=== PATIENT | female | born 1990 | race Caucasian/White ===

== ENCOUNTER 2018-07-19 14:50 | Emergency (ER) | payer BC ==
[~2018-07-19] VITALS: Ht 165.1 cm; Wt 117.0 kg
--- NOTE | 2018-07-19 15:25 | PHYS DOC ---
Past History Past Medical History: No Pertinent History Past Surgical History: No Surgical History Alcohol Use: Rarely Drug Use: None Adult General Chief Complaint Chief Complaint: CHEST PAIN HPI HPI Patient is a 27 year old [female] who presents with chest pain. This is in her left upper chest that has been present for the past 3 days. Became worse today. Worse with deep breaths. No association with activity. No radiation of the discomfort. Patient describes it as sore and mild to moderate in intensity. Patient denies any cough or fever. Denies any trauma. Denies any stasis or known hypercoagulable state. No previous history of this. Patient has taken antacids at the onset because of thinking that this was reflux however there was no change in the pain with the antacids. No family history of blood clots, family history is significant for diabetes[] Review of Systems Review of Systems Constitutional: Denies fever or chills [] Eyes: Denies change in visual acuity, redness, or eye pain [] HENT: Denies nasal congestion or sore throat [] Respiratory: Denies cough or shortness of breath [] Cardiovascular: No additional information not addressed in HPI [] GI: Denies abdominal pain, nausea, vomiting, bloody stools or diarrhea [] : Denies dysuria or hematuria [] Musculoskeletal: Denies back pain or joint pain [] Integument: Denies rash or skin lesions [] Neurologic: Denies headache, focal weakness or sensory changes [] Endocrine: Denies polyuria or polydipsia [] All other systems were reviewed and found to be within normal limits, except as documented in this note. Allergies Allergies Allergies Coded Allergies Type Severity Reaction Last Updated Verified No Known Drug Allergies 07/19/18 No Physical Exam Physical Exam Constitutional: Well developed, well nourished, no acute distress, non-toxic appearance. [] HENT: Normocephalic, atraumatic, bilateral external ears normal, oropharynx moist, no oral exudates, nose normal. [] Eyes: PERRLA, EOMI, conjunctiva normal, no discharge. [] Neck: Normal range of motion, no tenderness, supple, no stridor. [] Cardiovascular:Heart rate regular rhythm, no murmur [] Lungs & Thorax: Bilateral breath sounds clear to auscultation, no chest tenderness to palpation, no crepitus, no flail segment [] Abdomen: Bowel sounds normal, soft, no tenderness, no masses, no pulsatile masses. [] Skin: Warm, dry, no erythema, no rash. [] Back: No tenderness, no CVA tenderness. [] Extremities: No tenderness, no cyanosis, no clubbing, ROM intact, no edema. [] Neurologic: Alert and oriented X 3, normal motor function, normal sensory function, no focal deficits noted. [] Psychologic: Affect normal, judgement normal, mood normal. [] Current Patient Data Vital Signs Vital Signs Date Time Temp Pulse Resp B/P (MAP) Pulse Ox O2 Delivery O2 Flow Rate FiO2 07/19/18 14:50 82 24 99 Room Air EKG EKG EKG shows a normal sinus rhythm, no ST elevation, axis of 21, QTc of 407 ms[] Radiology/Procedures Radiology/Procedures Chest x-ray shows no acute features[] Course & Med Decision Making Course & Med Decision Making Pertinent Labs and Imaging studies reviewed. (See chart for details) Medical decision making: There does not appear to be a pneumonia, pneumothorax, no evidence of pulmonary embolism, no evidence of acute coronary syndrome, no esophageal rupture based on history. ED course: Patient arrived, was placed in bed, and tolerated exam well. After the return of laboratory and imaging findings, these were relayed to patient along with plan going forward. All questions were answered.[] Dragon Disclaimer Dragon Disclaimer This electronic medical record was generated, in whole or in part, using a voice recognition dictation system. Departure Departure: Impression: Primary Impression: Chest pain Disposition: HOME, SELF-CARE Condition: GOOD Referrals: PCP,NO (PCP) Patient Instructions: Chest Pain (Nonspecific), Form - Excuse from Work, School , or Physical Activity Additional Instructions: Follow-up with your regular doctor in 2 days. Return to the ER if worsening chest discomfort, difficulty breathing, or any other concerns. Scripts Tramadol Hcl (TRAMADOL HCL) 50 Mg Tablet 50 MG PO PRN Q6HRS PRN for PAIN, #20 TAB Prov: DOMO WOO DO 07/19/18 Meloxicam (MELOXICAM) 7.5 Mg Tablet 7.5 MG PO DAILY for PAIN, #20 TAB Prov: DOMO WOO DO 07/19/18 Problem Qualifiers Primary Impression: Chest pain Chest pain type: unspecified Qualified Codes: R07.9 - Chest pain, unspecified DOMO WOO DO Jul 19, 2018 15:25
[2018-07-19] MEDS ORDERED: ASPIRIN 81 MG TAB.CHEW PO ONE (15:30)
[2018-07-19] MEDS ORDERED: KETOROLAC 15 MG/ML VIAL. IV ONE (15:30)
[2018-07-19 15:48] LABS: BASO # 0.1 x10^3/uL (0.0-0.2); BASO % 1 % (0-3); EOS # 0.1 x10^3/uL (0.0-0.7); EOS % 1 % (0-3); HEMATOCRIT 42.7 % (36.0-47.0); HEMOGLOBIN 14.3 g/dL (12.0-15.5); LYMPH # 1.7 x10^3/uL (1.0-4.8); LYMPH % 24 % (24-48); MEAN CORPUSCULAR HEMOGLOBIN 28 pg (25-35); MEAN CORPUSCULAR HGB CONC 34 g/dL (31-37); MEAN CORPUSCULAR VOLUME 85 fL (79-100); MONO # 0.6 x10^3/uL (0.0-1.1); MONO % 8 % (0-9); NEUT # 4.7 x10^3uL (1.8-7.7); NEUT % 65 % (31-73); PLATELET COUNT 329 x10^3/uL (140-400); RED BLOOD COUNT 5.03 x10^6/uL (3.50-5.40); WHITE BLOOD COUNT 7.2 x10^3/uL (4.0-11.0)
[2018-07-19 16:12] LABS: ALBUMIN 3.6 g/dL (3.4-5.0); CALCIUM 9.2 mg/dL (8.5-10.1); GFR 66.5; POTASSIUM 3.9 mmol/L (3.5-5.1); TOTAL BILIRUBIN 0.5 mg/dL (0.2-1.0); TOTAL PROTEIN 7.1 g/dL (6.4-8.2)
[2018-07-19 16:26] VITALS: BP 122/70
--- NOTE | 2018-07-19 16:32 | RAD ---
Portable chest, 07/19/2018: HISTORY: Chest pain The heart size and pulmonary vascularity are normal. No pulmonary infiltrate is seen. There is no evidence of pleural fluid. IMPRESSION: No acute cardiopulmonary abnormality is detected. Electronically signed by: Jarocho Hathaway MD (07/19/2018 4:28 PM) [facility]
[2018-07-19] MEDS ORDERED: MELO7.5T29 PO (16:40)
[2018-07-19] MEDS ORDERED: TRAM50TA PO (16:40)
--- NOTE | 2018-07-19 17:45 | EKG ---
[address] [address] Test Date: 2018-07-19 Test Time: 15:00:01 Pat Name: YARELY OSBORNE Department: Room: Gender: F [employer]inder[employer] Technician: : [id number] Requested By: DOMO WOO Order Number: [id number] Reading MD: Alex Thomas MD Measurements Intervals [place] Rate: 78 P: 27 CA: 138 QRS: 21 QRSD: 82 T: 10 QT: 354 QTc: 407 Interpretive Statements SINUS RHYTHM Electronically Signed On 07-22-2018 8:40:11 ZOOKEEPER by Alex Thomas MD
== END 2018-07-19 16:50 | disposition home or self-care (01) ==
LOC: ER 14:50
DX: R07.89 Other chest pain (principal)
CPT/HCPCS: 36415; 71045; 80053; 83690; 83735; 83880; 84484; 85025; 85379; 85610; 93005; 96374; 99284; J1885